=== PATIENT | female | born 1970 | race Caucasian/White ===

== ENCOUNTER → 2017-11-21 | Outpatient (CLI) | payer MEDICAID | LOC: BRMIMAGING 13:44 | PROVIDERS: ATTEND Family Medicine | DX: Z12.31 Encounter for screening mammogram for malignant neoplasm of breast (principal) ==

== ENCOUNTER → 2017-11-27 | Outpatient (CLI) | payer MEDICAID | LOC: BRMIMAGING 09:15 | PROVIDERS: ATTEND Family Medicine | DX: R92.2 Inconclusive mammogram (principal) | CPT/HCPCS: 76641-PO ==

== ENCOUNTER → 2019-01-08 | Outpatient (CLI) | payer MEDICAID | LOC: BRMIMAGING 12:25 | PROVIDERS: ATTEND Family Medicine | DX: Z12.31 Encounter for screening mammogram for malignant neoplasm of breast (principal) ==